=== PATIENT | male | born 1990 | race Caucasian/White ===

== ENCOUNTER 2017-07-30 23:25 | Emergency (ER) | payer OTHER ==
[~2017-07-30] VITALS: Ht 182.9 cm; Wt 94.1 kg
[2017-07-31] MEDS ORDERED: LIDOCAINE 2% MDV 20 ML VIAL SC ONE (00:15)
[2017-07-31] MEDS ORDERED: NAPROXEN 250 MG TAB PO ONE (00:15)
[2017-07-31] MEDS ORDERED: POLYSPORIN TOPICAL OINTMENT 15GM As Ordered ONE (01:00)
[2017-07-31 01:14] VITALS: BP 126/73
== END 2017-07-31 01:29 | disposition home or self-care (01) ==
LOC: M ED 07-31 00:38
DX: S61.210A Laceration without foreign body of right index finger without damage to nail, initial encounter (principal); W26.0XXA Contact with knife, initial encounter; Y92.090 Kitchen in other non-institutional residence as the place of occurrence of the external cause; Y93.G1 Activity, food preparation and clean up; Y99.9 Unspecified external cause status